=== PATIENT | male | born 1990 | race African-American/Black ===

== ENCOUNTER 2024-04-14 19:05 | Emergency (ER) | payer OTHER, SELFPAY ==
--- NOTE | ~2024-04-14 | CT_ITS ---
CT of the Abdomen and Pelvis: Indication: Abdominal pain Technique: 2.5 mm axial scans were obtained through the abdomen and pelvis following intravenous adm inistration of 100 cc of Omnipaque 350. Dose reduction technique was used on this scan by utilizing a utomated exposure control and iterative reconstruction technique. The dose-length product (DLP) was 8 67.46 mGy-cm. Findings: Scans through the lung bases are unremarkable. The liver, spleen, pancreas, gallbladder, adrenals and kidneys are within normal limits. No evidence of aortic aneurysm. No lymphadenopathy. No bowel obstruction or bowel wall thickening. There is no evidence to suggest acute appendicitis. Images through the pelvis were performed. Urinary bladder unremarkable. No pelvic mass seen. No ascit es. Impression: No significant abnormalities seen. Reviewed, dictated and finalized at location . Impression: No significant abnormalities seen.
[2024-04-14 19:10] VITALS: BP 117/48; PULSE 54; RESP 20; TEMP 37.1; O2SAT 100
[2024-04-14 23:50] VITALS: BP 117/72; PULSE 66; RESP 18; O2SAT 100
[2024-04-15 00:18] LABS: Basophils Absolute Auto 0.1 K/mm3 (0.0-0.1); Basophils Percent Auto 1.3 % (0.2-1.2); Eosinophils Absolute Auto 0.2 K/mm3 (0-0.3); Eosinophils Percent Auto 2.4 % (0-4.4); Hematocrit 45.4 % (42.0-52.0); Hemoglobin 15.7 g/dL (14.0-18.0); Immature Granulocyte Absolute 0.01 K/mm3 (0.00-0.031); Immature Granulocyte Percent A 0.2 % (0-0.5); Lymphocytes Absolute Auto 2.84 K/mm3 (0.9-3.2); Lymphocytes Percent Auto 44.7 % (18.3-44.2); Mean Corpuscular HGB Conc 34.6 g/dl (32-36); Mean Corpuscular Hemoglobin 31.1 pg (26-34); Mean Corpuscular Volume 89.9 fl (80-100); Monocytes Absolute Auto 0.5 K/mm3 (0.1-0.6); Monocytes Percent Auto 8.5 % (2.6-8.5); Neutrophils Absolute Auto 2.7 K/mm3 (1.3-6.7); Neutrophils Percent Auto 42.9 % (45.5-73.1); Platelet Count Result 233 k/mm3 (150-375); Red Blood Count 5.05 M/mm3 (4.6-6.20); Red Cell Distribution Width 12.3 % (11.5-14.5); White Blood Count 6.4 K/mm3 (4.5-10.0)
[2024-04-15 00:23] LABS: Add Urine Microscopic? YES; Appearance Urine Clear (Clear); Bilirubin Urine Negative (Negative); Blood Urine Negative (Negative); Color Urine Yellow (Yellow); Glucose Urine UA Negative (Negative); Ketones Urine 1+ mg/dL (Negative); Leukocyte Esterase Ur Trace LEU/UL (Negative); Nitrate Urine Negative (Negative); Protein Urine Negative (Negative); Specific Grav Ur 1.016 (1.001-1.035); pH Urine 6.5 (5.0-9.0)
[2024-04-15 00:24] LABS: RBC Urine 0-2 /hpf (0-2); WBC Urine 0-5 /hpf (0-3)
[2024-04-15 00:26] LABS: Alanine Aminotransferase 26 U/L (6-50); Alkaline Phosphatase 36 U/L (38-126); Anion Gap 11 mmol/L (4-12); Aspartate Amino Transferase 28 U/L (17-59); Bilirubin,Total 0.9 mg/dL (0.2-1.3); Blood Urea Nitrogen 10 mg/dL (9-20); Calcium 9.7 mg/dL (8.4-10.2); Carbon Dioxide 28 mmol/L (22-30); Chloride 100 mmol/L (98-107); Estimated CRCL calculation 117 ml/min; Estimated Glomerular Filt Rate > 60; Glucose 83 mg/dL (65-110); Lipase 41 U/L (23-300); Potassium 3.7 mmol/L (3.4-5.0); Sodium 139 mmol/L (137-145)
--- NOTE | 2024-04-15 01:06 | ED.ABDPAIN ---
HPI - Abdominal Pain General Chief Complaint: Abdominal Pain Stated Complaint: abd pain Time Seen by Provider: 04/15/24 00:18 History of Present Illness HPI narrative: 33-year-old male present to the emergency department for evaluation for worsening abdominal pain. Patient states he has had intermittent abdominal pain over the last 3-4 months. Patient states the pain is not consistent in 1 area but does move around and does change in quality. Patient states today he was having some sharp right lower quadrant pain. She denies any change in bowel habits. Patient has not had follow-up with a physician for this pain. Related Data Allergies Allergy/AdvReac Type Severity Reaction Status Date / Time No Known Allergies Allergy Verified 04/14/24 19:16 Review of Systems Review of Systems: All systems reviewed & are unremarkable except as noted in HPI and below Exam Narrative: APPEARANCE: Well appearing, no pain, no distress, well-nourished. HEAD: normocephalic, atraumatic. EYES: PERRLA/EOMI, conjunctivae clear. NOSE: Normal no drainage EARS:TMS clear with good light reflex. THROAT: Pharynx clear, no exudate. NECK: Supple. No adenopathy, no masses. RESPIRATORY: Airway patent, respirations nonlabored. Clear to auscultation bilaterally, no rales, rhonchi, wheezing. CARDIOVASCULAR: Regular rate and rhythm without murmurs rubs or gallops. ABDOMINAL: Soft, nontender, nondistended, normal bowel sounds MUSCULOSKELETAL: Moves all extremities. Strength/ROM intact, No edema, No calf tenderness. NEURO: Alert. Cranial nerves II through XII intact. SKIN: Warm, dry. Normal Color Course Course Emergency Course: Patient updated the results of the workup patient was comfortable the plan with discharge and close follow-up Vital Signs Vital signs: Vital Signs Temperature 98.7 F 04/14/24 19:10 Pulse Rate 54 L 04/14/24 19:10 Respiratory Rate 20 04/14/24 19:10 Blood Pressure 117/48 L 04/14/24 19:10 Pulse Oximetry 100 04/14/24 19:10 Oxygen Delivery Room Air 04/14/24 19:10 Temperature 98.7 F 04/14/24 19:10 Pulse Rate 53 L 04/15/24 03:56 Respiratory Rate 16 04/15/24 03:56 Blood Pressure 122/56 L 04/15/24 03:56 Pulse Oximetry 100 04/15/24 03:56 Oxygen Delivery Room Air 04/14/24 19:10 MDM - Abdominal Pain MDM Narrative Medical decision making narrative: 33-year-old male presents emergency department for evaluation for abdominal pain. Patient is afebrile with no leukocytosis and a stable hemoglobin of 15.7. Patient has no acute abnormalities on his CMP lipase is negative. UA showed no underlying evidence of infection. CT abdomen pelvis showed normal appendix no evidence of bowel obstruction with no other acute findings. Patient was updated results of his workup was encouraged of close follow-up with primary care physician along with GI. Differential Diagnosis Differential diagnosis: Likely abdominal pain, acute appendicitis, calculus of kidney, constipation, diverticulitis, endometriosis, pancreatitis and small bowel obstruction Lab Data Attestation: I reviewed the patient's lab results. 04/15/24 00:11 04/15/24 00:11 Labs: Lab Results 04/15/24 04/15/24 Range/Units 00:10 00:11 WBC 6.4 (4.5-10.0) K/mm3 RBC 5.05 (4.6-6.20) M/mm3 Hgb 15.7 (14.0-18.0) g/dL Hct 45.4 (42.0-52.0) % MCV 89.9 (80-100) fl MCH 31.1 (26-34) pg MCHC 34.6 (32-36) g/dl RDW 12.3 (11.5-14.5) % Plt Count 233 (150-375) k/mm3 MPV 10.0 (7.4-10.4) fl Immature Gran % (Auto) 0.2 (0-0.5) % Neut % (Auto) 42.9 L (45.5-73.1) % Lymph % (Auto) 44.7 H (18.3-44.2) % [place] % (Auto) 8.5 (2.6-8.5) % Eos % (Auto) 2.4 (0-4.4) % Baso % (Auto) 1.3 H (0.2-1.2) % Lymph # (Auto) 2.84 (0.9-3.2) K/mm3 [place] # (Auto) 0.5 (0.1-0.6) K/mm3 Eos # (Auto) 0.2 (0-0.3) K/mm3 Baso # (Auto) 0.1 (0.0-0.1) K/mm3 Abs Immat Gran (auto) 0.01 (0.00-0.031
[2024-04-15 01:20] VITALS: BP 126/70; PULSE 52; RESP 15; O2SAT 100
[2024-04-15] MEDS: SODIUM CHLORIDE 0.9% IV 1,000 ML 999 ML IV CONT (02:26)
[2024-04-15 03:56] VITALS: BP 122/56; PULSE 53; RESP 16; O2SAT 100
== END 2024-04-15 04:07 | disposition home or self-care (01) ==
PROVIDERS: Emergency Provider Emergency Medicine
DX: R10.31 Right lower quadrant pain (principal)
CPT/HCPCS: 36415; 74177; 80053; 81001; 83690; 85025; 96360; 99284; J7030; Q9967